=== PATIENT | female | born 1945 | race Two or more races ===

== ENCOUNTER 2019-04-05 13:47 | Emergency (ER) | payer OTHER ==
[~2019-04-05] VITALS: Ht 149.9 cm; Wt 56.7 kg
[~2019-04-05 13:47] MED LIST: CALCIO
[2019-04-05] MEDS ORDERED: BUDESONIDE0.25 MG/2 (14:29)
[2019-04-05] MEDS ORDERED: PROAIR HFA8.5 GM (14:29)
[2019-04-05] MEDS ORDERED: TUSSI PRES-B L480 ML (14:30)
[2019-04-05] MEDS ORDERED: PRAVASTATIN SOD10 MG (14:30)
[2019-04-05] MEDS ORDERED: SUDAFED 24-HOU240 MG (14:30)
[2019-04-05] MEDS ORDERED: SYNTHROID50 MCG (14:31)
[2019-04-05] MEDS ORDERED: CALCIUM500 M2 (14:31)
== END 2019-04-05 20:06 | disposition home or self-care (01) ==
LOC: ER 13:47 → EDBD 14:12 → ER 20:06
DX: J45.998 Other asthma (principal)

== ENCOUNTER 2019-11-20 07:38 | Outpatient (CLI) | payer OTHER ==
[~2019-11-20 07:38] MED LIST changes: +BUDESONIDE0.25 MG/2; +CALCIUM500 M2; +PRAVASTATIN SOD10 MG; +PROAIR HFA8.5 GM; +SUDAFED 24-HOU240 MG; +SYNTHROID50 MCG; +TUSSI PRES-B L480 ML
== END 2019-11-20 07:48 | disposition home or self-care (01) ==
LOC: NUCLEAR 07:38
PROVIDERS: ATTEND Internal Medicine
DX: R10.84 Generalized abdominal pain (principal)
CPT/HCPCS: 78227; A9537; J2805

== ENCOUNTER 2024-03-02 09:30 | Emergency (ER) | payer OTHER ==
[~2024-03-02] VITALS: Ht 149.9 cm; Wt 56.7 kg
[2024-03-02] MEDS ORDERED: SUCRALFATE1 GM PO (10:03)
[2024-03-02] MEDS ORDERED: ABANEU-SL TABL1 EACH SL (10:03)
[2024-03-02] MEDS ORDERED: DEXAMETHASONE SODIUM PHOSPHATE 4 MG/ML VIAL IV STA (10:32)
[2024-03-02 11:00] LABS: HEMATOCRIT 40.5 % (36.0-45.00); HEMOGLOBIN 14.1 g/dL (12.0-15.00); MEAN CELL VOLUME 95.7 fL (80.00-100.00); MEAN CORPUSCULAR HEMOGLOBIN 33.3 pg (27.00-32.0); MEAN CORPUSCULAR HGB CONC 34.8 g/dl (32.0-36.0); PLATELET COUNT 211 K/uL (150-450); RED BLOOD COUNT 4.23 M/uL (4.00-6.00); RED CELL DISTRIBUTION WIDTH 13.1 % (11.5-14.5)
[2024-03-02 11:31] LABS: CALCIUM 8.5 mg/dL (8.5-10.1); CREATININE SERUM 0.73 mg/dL (0.55-1.02); GFR 77.3; POTASSIUM 3.92 mEq/L (3.5-5.1)
== END 2024-03-02 13:37 | disposition home or self-care (01) ==
LOC: ER 09:32
PROVIDERS: General Practice
DX: T17.208A Unspecified foreign body in pharynx causing other injury, initial encounter (principal); Y92.89 Other specified places as the place of occurrence of the external cause; Z88.0 Allergy status to penicillin
CPT/HCPCS: 36415; 70490; 96365; 99283; J1100

== ENCOUNTER 2024-09-15 07:08 | Outpatient (CLI) | payer OTHER ==
[~2024-09-15 07:08] MED LIST changes: +ABANEU-SL TABL1 EACH SL; +SUCRALFATE1 GM PO
[2024-09-15 09:50] LABS: ALBUMIN 3.4 gm/dL (3.4-5.0); BILIRUBIN TOTAL 0.69 mg/dL (0.3-1.2); CALCIUM 8.6 mg/dL (8.5-10.1); CREATININE SERUM 0.6 mg/dL (0.55-1.02); GFR 96.94; GLOBULINA 3.3 G/DL (2.4-3.5); PHOSPHOROUS 3.1 mg/dL (2.5-4.9); POTASSIUM 4.35 mEq/L (3.5-5.1); TOTAL PROTEIN 6.7 gm/dL (6.4-8.2)
== END 2024-09-15 07:09 | disposition home or self-care (01) ==
LOC: LAB 07:08
PROVIDERS: ATTEND Orthopaedic Surgery
DX: E55.9 Vitamin D deficiency, unspecified (principal); M85.9 Disorder of bone density and structure, unspecified; E56.1 Deficiency of vitamin K; E21.3 Hyperparathyroidism, unspecified; E88.89 Other specified metabolic disorders; M81.8 Other osteoporosis without current pathological fracture

== ENCOUNTER 2025-02-09 07:39 | Outpatient (CLI) | payer OTHER | END 2025-02-09 07:47 | disposition home or self-care (01) | LOC: TOM 07:39 | PROVIDERS: ATTEND Specialist | DX: R91.1 Solitary pulmonary nodule (principal) | CPT/HCPCS: 71260; Q9965 ==